=== PATIENT | male | born 1965 | race Two or more races ===

== ENCOUNTER 2017-05-20 11:06 | Inpatient (IN) | payer MEDICAID ==
[2017-05-20] VITALS (8 sets, daily range): BP systolic 94–111; BP diastolic 58–74
[~2017-05-20] VITALS: Ht 170.2 cm; Wt 58.1 kg
[~2017-05-20 11:06] MED LIST: LEVEMIR FL100 UNIT/1 SUBQ
[2017-05-20] MEDS ORDERED: BENAZEPRIL HCL10 MG ORAL (11:25)
[2017-05-20] MEDS ORDERED: METFORMIN HCL500 M1 ORAL (11:25)
[2017-05-20] MEDS ORDERED: Famotidine 20 MG/ 2ML VIAL IVP ONE (11:30)
[2017-05-20 11:59] LABS: MEAN CORPUSCULAR HEMOGLOBIN 28.2 PG (27.0-31.0); MEAN CORPUSCULAR VOLUME 83 FL (80-99); MEAN PLATELET VOLUME 8.9 FL (6.5-10.1); PLATELET COUNT 187 K/UL (150-450); RED BLOOD COUNT 5.52 M/UL (4.70-6.10); RED CELL DISTRIBUTION WIDTH 12.9 % (11.6-14.8); WHITE BLOOD COUNT 9.8 K/UL (4.8-10.8)
[2017-05-20 12:12] LABS: ALANINE AMINOTRANSFERASE 7 U/L (3-41); ALBUMIN/GLOBULIN RATIO 1.9 (1.0-2.7); ANION GAP 41 (5-15); ASPARTATE AMINO TRANSFERASE 14 U/L (5-40); CALCIUM 9.2 mg/dL (8.6-10.2); CHLORIDE 83 mEQ/L (98-107); CREATININE 1.6 mg/dL (0.7-1.2); GLOMERULAR FILTRATION RATE 45.8 mL/min (>60); HEMOLYSIS 1; LIPASE 16 U/L (< 60); MAGNESIUM 2.1 mg/dL (1.7-2.5); POTASSIUM 4.9 mEQ/L (3.4-4.9); SODIUM 131 mEQ/L (135-145); TOTAL PROTEIN 7.6 g/dL (6.6-8.7); TROPONIN I < 0.30 ng/mL (<=0.30)
[2017-05-20 12:23] LABS: CARBON DIOXIDE 7 mEQ/L (20-30)
[2017-05-20] MEDS ORDERED: REGULAR INSULIN IV SCH (13:00)
[2017-05-20] MEDS ORDERED: NS IV SCH (13:00)
[2017-05-20 13:26] LABS: BAND NEUTROPHILS % (MANUAL) 0 % (0-8); BASOPHILS % (MANUAL) 0 % (0-2); EOSINOPHILS % (MANUAL) 0 % (0-3); LYMPHOCYTES % (MANUAL) 11 % (20-45); NEUTROPHILS % (MANUAL) 86 % (45-75); PLATELET ESTIMATE ADEQUATE; PLATELET MORPHOLOGY NORMAL; TOTAL CELLS COUNTED 100
[2017-05-20 13:43] LABS: ABG PCO2 20.1 mmHg (35.0-45.0)
[2017-05-20 13:44] LABS: ABG BASE EXCESS -19.4
--- NOTE | 2017-05-20 14:29 | Emergency Room Report ---
History of Present Illness General Chief Complaint: Abdominal Pain Source: Patient Present Illness HPI 52-year-old male presents to ED for evaluation. Patient states for last 2 days he's been feeling dizzy vomiting. Patient notes epigastric pain, 8/10, burning , nonradiating. Denies chest pain shortness of breath. Patient is a diabetic. Accu-Chek is critically high. States he is compliant with his medications. Denies fevers or chills. No other aggravating relieving factors. Denies any other associated symptoms Allergies: Coded Allergies: NO KNOWN ALLERGIES (Unverified Allergy, Unknown, 10/31/15) Patient History Past Medical History: DM, HTN, seizures Past Surgical History: none Pertinent Family History: none Social History: Denies: alcohol use, drug use, smoking Immunizations: UTD Reviewed Nursing Documentation: PMH: Agreed, PSxH: Agreed Nursing Documentation-PMH Hx Cardiac Problems: No Hx Hypertension: Yes Hx Diabetes: Yes Hx Cancer: No Hx Gastrointestinal Problems: No Hx Neurological Problems: No Hx Seizures: Yes Review of Systems All Other Systems: negative except mentioned in HPI Physical Exam Vital Signs Date Time Temp Pulse Resp B/P Pulse Ox O2 Delivery O2 Flow Rate FiO2 05/20/17 11:11 98.6 100 18 108/74 96 Room Air Sp02 EP Interpretation: reviewed, normal General Appearance: no apparent distress, alert, GCS 15, non-toxic Head: normocephalic, atraumatic Eyes: bilateral eye PERRL, bilateral eye normal inspection ENT: hearing grossly normal, normal pharynx, no angioedema, normal voice Neck: full range of motion, supple/symm/no masses Respiratory: chest non-tender, lungs clear, normal breath sounds, speaking full sentences Cardiovascular #1: regular rate, rhythm, no edema Cardiovascular #2: 2+ carotid (R), 2+ carotid (L), 2+ radial (R), 2+ radial (L) , 2+ dorsalis pedis (R), 2+ dorsalis pedis (L) Gastrointestinal: normal bowel sounds, non tender, soft, non-distended, no guarding, no rebound Rectal: deferred Genitourinary: normal inspection, no CVA tenderness Musculoskeletal: back normal, gait/station normal, normal range of motion, non- tender Neurologic: alert, oriented x3, responsive, motor strength/tone normal, sensory intact, speech normal Psychiatric: judgement/insight normal, memory normal, mood/affect normal, no suicidal/homicidal ideation Reflexes: 3+ bicep (R), 3+ bicep (L), 3+ tricep (R), 3+ tricep (L), 3+ knee (R) , 3+ knee (L) Skin: normal color, no rash, warm/dry, well hydrated Lymphatic: no adenopathy Procedures Critical Care Time Critical Care Time i. I feel this is a highly complex case requiring extensive working including EKG/Rhythm strip, Xray/CT/US, Blood/urine lab work, repeat exams while in ED, and administration of strong opiates/narcotics for pain control, admission to hospital or close patient follow up. Total time: 30 min bedside evaluation and treatment excludes procedures (EKG). Reason for critical care: DKA Possible complications: hypotension, hypertension, PA, shock, arrhythmias, metabolic acidosis, end organ damage, respiratory failure. Interventions: Labs, IV fluids, Accu-Cheks, EKG. ABG. Insulin bolus. Insulin drip Course: Patient here for dizziness, vomiting. Accu-Chek critically high. Glucose greater than 500, positive ketones, low bicarbonate. EKG unremarkable. IV fluids given. Insulin bolus given. Insulin drip started Consultations: nursing staff, EMS, family Performed by: Dr Kelly Tolerated well condition = critical j. because of unstable vital signs this patient had a condition that could potentially threaten life or limb. I feel this is a critical patient who required my full attention while patient was considered critical. Total Critical Care Time excluding procedures was greater than 35 minutes Medical Decision Making Diagnostic Impression: Primary Impression: DKA (diabetic ketoacidoses) Qualified Codes: E10.10 - Type 1 diabetes mellitus with ketoacidosis without coma ER Course Hospital Course 52-year-old male presenting to ED with dizziness, vomiting. accucheck critically high Differential diagnoses include: ETOH/drug ingestion, sepsis, DKA Clinical course Patient placed on stretcher. On panel monitor. After initial history and physical I ordered labs, 2 L of IV fluids, EKG Labs-glucose greater than 500, anion gap elevated, bicarbonate 7, BUN/ creatinine elevated. ABG shows acidosis, low bicarb EKG - NSR, no acute changes interpreted by me Given IV fluids, 2 more liters are ordered and insulin drip started. Case discussed with Dr. Bone and he agreed to accept the patient to his service for further care and support i. I feel this is a highly complex case requiring extensive working including EKG/Rhythm strip, Xray/CT/US, Blood/urine lab work, repeat exams while in ED, and administration of strong opiates/narcotics for pain control, admission to hospital or close patient follow up. j. because of unstable vital signs this patient had a condition that could potentially threaten life or limb. I feel this is a critical patient who required my full attention while patient was considered critical. Total Critical Care Time excluding procedures was greater than 35 minutes diagnosis - DKA admitted to ICU in critical condition Labs Test 05/20/17 11:40 05/20/17 13:32 White Blood Count 9.8 K/UL (4.8-10.8) Red Blood Count 5.52 M/UL (4.70-6.10) Hemoglobin 15.6 G/DL (14.2-18.0) Hematocrit 45.8 % (42.0-52.0) Mean Corpuscular Volume 83 FL (80-99) Mean Corpuscular Hemoglobin 28.2 PG (27.0-31.0) Mean Corpuscular Hemoglobin Concent 34.0 G/DL (32.0-36.0) Red Cell Distribution Width 12.9 % (11.6-14.8) Platelet Count 187 K/UL (150-450) Mean Platelet Volume 8.9 FL (6.5-10.1) Neutrophils (%) (Auto) % (45.0-75.0) Lymphocytes (%) (Auto) % (20.0-45.0) Monocytes (%) (Auto) % (1.0-10.0) Eosinophils (%) (Auto) % (0.0-3.0) Basophils (%) (Auto) % (0.0-2.0) Differential Total Cells Counted 100 Neutrophils % (Manual) 86 % (45-75) Lymphocytes % (Manual) 11 % (20-45) Monocytes % (Manual) 3 % (1-10) Eosinophils % (Manual) 0 % (0-3) Basophils % (Manual) 0 % (0-2) Band Neutrophils 0 % (0-8) Platelet Estimate Adequate Platelet Morphology Normal Red Blood Cell Morphology Normal Sodium Level 131 mEQ/L (135-145) Potassium Level 4.9 mEQ/L (3.4-4.9) Chloride Level 83 mEQ/L (98-107) Carbon Dioxide Level 7 mEQ/L (20-30) Anion Gap 41 (5-15) Blood Urea Nitrogen 21 mg/dL (7-23) Creatinine 1.6 mg/dL (0.7-1.2) Estimat Glomerular Filtration Rate 45.8 mL/min (>60) Glucose Level 542 mg/dL (74-106) Calcium Level 9.2 mg/dL (8.6-10.2) Magnesium Level 2.1 mg/dL (1.7-2.5) Total Bilirubin 0.8 mg/dL (0.0-1.2) Aspartate Amino Transf (AST/SGOT) 14 U/L (5-40) Alanine Aminotransferase (ALT/SGPT) 7 U/L (3-41) Alkaline Phosphatase 94 U/L (40-129) Troponin I < 0.30 ng/mL (<=0.30) Total Protein 7.6 g/dL (6.6-8.7) Albumin 5.0 g/dL (3.5-5.2) Globulin 2.6 g/dL Albumin/Globulin Ratio 1.9 (1.0-2.7) Lipase 16 U/L (< 60) Acetone Level Positive-small (NEGATIVE) Arterial Blood pH 7.170 (7.350-7.450) Arterial Blood Partial Pressure CO2 20.1 mmHg (35.0-45.0) Arterial Blood Partial Pressure O2 102.3 mmHg (75.0-100.0) Arterial Blood HCO3 7.1 mmol/L (22.0-26.0) Arterial Blood Oxygen Saturation 96.0 % (92.0-98.0) Arterial Blood Base Excess -19.4 Saran Test EKG Diagnostic Results Rate: normal Rhythm: NSR ST Segments: no acute changes ASA given to the pt in ED: No Rhythm Strip Diag. Results EP Interpretation: yes Rhythm: NSR, no PVC's, no ectopy Last Vital Signs Date Time Temp Pulse Resp B/P Pulse Ox O2 Delivery O2 Flow Rate FiO2 05/20/17 12:27 92 18 103/63 96 Room Air 05/20/17 11:22 98.6 Status: improved Disposition: ADMITTED INPATIENT Condition: Critical Referrals: NOT CHOSEN IPA/,REFERRING (PCP) PABLO KELLY M.D. May 20, 2017 14:29
[2017-05-20] MEDS ORDERED: Morphine Sulfate 4mg/ml Inj IVP PRN (15:30)
[2017-05-20] MEDS ORDERED: LORazepam Inj 2mg/ml 1ml IV PRN (15:30)
[2017-05-20] MEDS ORDERED: Nitroglycerin Subl 0.4mg tab (Bottle Of 25) SL PRN (15:30)
[2017-05-20] MEDS ORDERED: Miralax 17gm pkt ORAL PRN (15:30)
[2017-05-20] MEDS ORDERED: DuoNeb 0.5-3(2.5)mg/3ml neb HHN PRN (15:30)
[2017-05-20] MEDS: Insulin Rate Change 1 Each MISC PRN ×2 (19:12→21:03)
--- NOTE | 2017-05-20 20:40 | History & Physical ---
History and Physical History & Physicial d/c summary dictated [id number] COCO ROBERTS M.D. May 20, 2017 20:40
[2017-05-20] MEDS: Heparin 5000 units/ml inj SUBQ SCH (21:02)
[2017-05-20] MEDS ORDERED: Insulin Rate Change 1 Each MISC PRN (22:00)
[2017-05-21] VITALS (21 sets, daily range): BP systolic 90–114; BP diastolic 37–71
[2017-05-21] MEDS: Insulin Rate Change 1 Each MISC PRN ×7 (00:59→17:09)
[2017-05-21 04:55] LABS: APPEARANCE,URINE CLEAR; KETONES,URINE 4+ (NEGATIVE); LEUKOCYTE ESTERASE ,URINE NEGATIVE (NEGATIVE); NITRITE,URINE NEGATIVE (NEGATIVE); PH,URINE 5 (4.5-8.0); UROBILINOGEN,URINE NORMAL MG/DL (0.0-1.0)
[2017-05-21 05:08] LABS: PROTEIN,URINE NEGATIVE (NEGATIVE)
[2017-05-21 05:18] LABS: BILIRUBIN,DIRECT 0.2 mg/dL (0.1-0.3); INR 0.9 (0.9-1.1); PHOSPHORUS 2.4 mg/dL (2.5-4.8); PROTHROMBIN TIME 9.8 SEC (9.30-11.50)
[2017-05-21 05:20] LABS: ANION GAP 19 (5-15); CALCIUM 7.9 mg/dL (8.6-10.2); CARBON DIOXIDE 18 mEQ/L (20-30); CHLORIDE 106 mEQ/L (98-107); CREATININE 0.8 mg/dL (0.7-1.2); GLOMERULAR FILTRATION RATE > 60 mL/min (>60); HEMOLYSIS 6; POTASSIUM 3.4 mEQ/L (3.4-4.9); SODIUM 143 mEQ/L (135-145)
[2017-05-21] MEDS ORDERED: Benazepril 10mg tab ORAL SCH (09:00)
[2017-05-21] MEDS: Heparin 5000 units/ml inj SUBQ SCH ×2 (09:00→21:46)
--- NOTE | 2017-05-21 10:06 | Pulmonolgy Critical Care Note ---
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 Critical Care - Objective Last 24 Hour Vital Signs Date Time Temp Pulse Resp B/P Pulse Ox O2 Delivery O2 Flow Rate FiO2 05/21/17 09:00 90/61 05/21/17 08:00 97.8 61 16 99/62 100 Room Air 05/21/17 07:00 63 12 93/61 99 Room Air 05/21/17 06:00 59 13 99/66 98 Room Air 05/21/17 05:00 57 12 99/63 98 Room Air 05/21/17 04:00 59 05/21/17 04:00 97.9 63 13 96/61 100 Room Air 05/21/17 03:00 63 13 95/64 98 Room Air 05/21/17 02:00 60 12 91/59 100 Room Air 05/21/17 01:00 67 12 91/58 99 Room Air 05/21/17 00:00 68 05/21/17 00:00 66 05/21/17 00:00 98.1 67 12 92/57 98 Room Air 05/20/17 23:00 69 14 111/67 100 Room Air 05/20/17 22:00 67 12 101/58 98 Room Air 05/20/17 21:30 73 05/20/17 21:00 71 13 98/63 100 Room Air 05/20/17 20:00 98.3 71 16 95/59 99 Room Air 05/20/17 16:23 78 18 94/58 99 Room Air 05/20/17 16:15 98.6 78 18 94/58 99 Room Air 05/20/17 14:20 81 18 105/66 96 Room Air 05/20/17 12:27 92 18 103/63 96 Room Air 05/20/17 11:22 98.6 18 108/74 96 Room Air 05/20/17 11:11 98.6 100 18 108/74 96 Room Air Status: awake Condition: critical HEENT: atraumatic Heart: HR/BP stable, HR/BP unstable Abdomen: soft, non-tender Extremities: no C/C/E Accucheck: 184 Critical Care - Subjective ROS Limited/Unobtainable: Yes ICU Day: 2 Intubation Day: 2 Condition: critical EKG Rhythm: Sinus Rhythm Fluids: NS 150 cc.hour I&O: Intake and Output 05/20/17 05/21/17 19:00 07:00 Intake Total 3325 ml 1720.3 ml Output Total 1200 ml 750 ml Balance 2125 ml 970.3 ml Intake Oral 0 ml 60 ml IV Total 3305 ml 1660.3 ml Other 20 ml Output Urine Total 1200 ml 750 ml CXR: JAS Labs: Laboratory Tests Test 05/20/17 11:40 05/20/17 13:32 05/21/17 04:00 05/21/17 04:05 White Blood Count 9.8 K/UL (4.8-10.8) Red Blood Count 5.52 M/UL (4.70-6.10) Hemoglobin 15.6 G/DL (14.2-18.0) Hematocrit 45.8 % (42.0-52.0) Mean Corpuscular Volume 83 FL (80-99) Mean Corpuscular Hemoglobin 28.2 PG (27.0-31.0) Mean Corpuscular Hemoglobin Concent 34.0 G/DL (32.0-36.0) Red Cell Distribution Width 12.9 % (11.6-14.8) Platelet Count 187 K/UL (150-450) Mean Platelet Volume 8.9 FL (6.5-10.1) Neutrophils (%) (Auto) % (45.0-75.0) Lymphocytes (%) (Auto) % (20.0-45.0) Monocytes (%) (Auto) % (1.0-10.0) Eosinophils (%) (Auto) % (0.0-3.0) Basophils (%) (Auto) % (0.0-2.0) Differential Total Cells Counted 100 Neutrophils % (Manual) 86 % (45-75) H Lymphocytes % (Manual) 11 % (20-45) L Monocytes % (Manual) 3 % (1-10) Eosinophils % (Manual) 0 % (0-3) Basophils % (Manual) 0 % (0-2) Band Neutrophils 0 % (0-8) Platelet Estimate Adequate Platelet Morphology Normal Red Blood Cell Morphology Normal Sodium Level 131 mEQ/L (135-145) L 143 mEQ/L (135-145) # Potassium Level 4.9 mEQ/L (3.4-4.9) 3.4 mEQ/L (3.4-4.9) Chloride Level 83 mEQ/L (98-107) L 106 mEQ/L (98-107) Carbon Dioxide Level 7 mEQ/L (20-30) *L 18 mEQ/L (20-30) L Anion Gap 41 (5-15) H 19 (5-15) H Blood Urea Nitrogen 21 mg/dL (7-23) 12 mg/dL (7-23) Creatinine 1.6 mg/dL (0.7-1.2) H 0.8 mg/dL (0.7-1.2) Estimat Glomerular Filtration Rate 45.8 mL/min (>60) > 60 mL/min (>60) Glucose Level 542 mg/dL (74-106) *H 89 mg/dL (74-106) # Calcium Level 9.2 mg/dL (8.6-10.2) 7.9 mg/dL (8.6-10.2) L Magnesium Level 2.1 mg/dL (1.7-2.5) Total Bilirubin 0.8 mg/dL (0.0-1.2) 0.9 mg/dL (0.0-1.2) Aspartate Amino Transf (AST/SGOT) 14 U/L (5-40) 11 U/L (5-40) Alanine Aminotransferase (ALT/SGPT) 7 U/L (3-41) 5 U/L (3-41) Alkaline Phosphatase 94 U/L (40-129) 58 U/L (40-129) Troponin I < 0.30 ng/mL (<=0.30) Total Protein 7.6 g/dL (6.6-8.7) 5.0 g/dL (6.6-8.7) #L Albumin 5.0 g/dL (3.5-5.2) 3.4 g/dL (3.5-5.2) L Globulin 2.6 g/dL Albumin/Globulin Ratio 1.9 (1.0-2.7) Lipase 16 U/L (< 60) Acetone Level Positive-small (NEGATIVE) Arterial Blood pH 7.170 (7.350-7.450) Arterial Blood Partial Pressure CO2 20.1 mmHg (35.0-45.0) *L Arterial Blood Partial Pressure O2 102.3 mmHg (75.0-100.0) H Arterial Blood HCO3 7.1 mmol/L (22.0-26.0) L Arterial Blood Oxygen Saturation 96.0 % (92.0-98.0) Arterial Blood Base Excess -19.4 Saran Test Urine Color Yellow Urine Appearance Clear Urine pH 5 (4.5-8.0) Urine Specific Seltzer 1.025 (1.005-1.035) Urine Protein Negative (NEGATIVE) Urine Glucose (UA) 4+ (NEGATIVE) H Urine Ketones 4+ (NEGATIVE) H Urine Occult Blood Negative (NEGATIVE) Urine Nitrite Negative (NEGATIVE) Urine Bilirubin Negative (NEGATIVE) Urine Urobilinogen Normal MG/DL (0.0-1.0) Urine Leukocyte Esterase Negative (NEGATIVE) Prothrombin Time 9.8 SEC (9.30-11.50) Prothromb Time International Ratio 0.9 (0.9-1.1) Activated Partial Thromboplast Time 23 SEC (23-33) Phosphorus Level 2.4 mg/dL (2.5-4.8) L Direct Bilirubin 0.2 mg/dL (0.1-0.3) LIBRA DUONG May 21, 2017 10:06
[2017-05-21] MEDS ORDERED: Potassium Chloride 10 MEQ in D5 1/2NS 1,000 ML IV SCH (11:00)
[2017-05-21] MEDS ORDERED: Potassium Phosphate 30 MM in Sodium Chloride 550 ML IV ONE (11:30)
--- NOTE | 2017-05-21 12:02 | Cardiology Report ---
APPROVED REPORT EKG Measurement Heart [id number] Normal sinus rhythm Biatrial enlargement Abnormal ECG
--- NOTE | 2017-05-21 12:16 | Internal Med Progress Note ---
Subjective Physician Name Coco Roberts Attending Physician Coco Roberts M.D. Current Medications Medications (Trade) Dose Ordered Sig/Fariha Route PRN Reason Start Time Stop Time Status Last Admin Dose Admin Acetaminophen (Tylenol) 650 mg Q4H PRN ORAL T>100.5 05/20/17 15:30 06/19/17 15:29 Albuterol/ Ipratropium 3 ml 3 ml Q4H PRN HHN Shortness of Breath 05/20/17 15:30 05/25/17 15:29 Benazepril HCl (Lotensin) 5 mg DAILY ORAL 05/21/17 09:00 06/20/17 08:59 Dextrose (Dextrose 50%) PRN PRN IV HYPOGLYCEMIA 05/20/17 23:45 06/19/17 23:44 Heparin Sodium (Porcine) (Heparin 5000 units/ml) 5,000 units EVERY 12 HOURS SUBQ 05/20/17 21:00 06/19/17 20:59 05/20/17 21:02 Insulin Human Regular (NovoLIN R) 5 units PRN PRN IV BS 200-299 05/20/17 23:45 06/19/17 23:44 05/21/17 00:59 Insulin Human Regular (NovoLIN R) 10 units PRN PRN IV BS=>300 05/20/17 23:45 06/19/17 23:44 Insulin Human Regular/Sodium Chloride (NovoLIN R/ Sodium Chloride) 101 ml @ 0 mls/hr Q24H IV 05/20/17 23:45 06/19/17 23:44 05/21/17 10:07 Lorazepam (Ativan 2mg/ml 1ml) 2 mg Q2H PRN IV agitation 05/20/17 15:30 05/27/17 15:29 Miscellaneous Medication 1 ea 1 ea PRN PRN MISC Hyperglycemia 05/20/17 23:45 06/19/17 23:44 05/21/17 11:29 Morphine Sulfate (Morphine Sulfate) 4 mg Q4H PRN IVP Severe Pain (Pain Scale 7-10) 05/20/17 15:30 05/27/17 15:29 Nitroglycerin (Ntg) 0.4 mg Q5M PRN SL Prn Chest Pain 05/20/17 15:30 06/19/17 15:29 Ondansetron HCl (Zofran) 4 mg Q6H PRN IVP Nausea & Vomiting 05/20/17 15:30 06/19/17 15:29 Polyethylene Glycol (Miralax) 17 gm DAILYPRN PRN ORAL Constipation 05/20/17 15:30 06/19/17 15:29 Potassium Chloride 10 meq/ Dextrose/Sodium Chloride 1,005 ml @ 75 mls/hr [id number] IV 05/21/17 11:00 06/20/17 10:59 05/21/17 11:27 Potassium Phosphate/Sodium Chloride (Potassium Phosphate/NS) 560 ml @ 93.3 mls/hr ONCE ONCE IV 05/21/17 11:30 05/21/17 17:30 Allergies: Coded Allergies: NO KNOWN ALLERGIES (Unverified Allergy, Unknown, 10/31/15) All Systems: reviewed and negative except above - weakness, thirsty Objective Last Vital Signs Date Time Temp Pulse Resp B/P Pulse Ox O2 Delivery O2 Flow Rate FiO2 05/21/17 11:00 69 16 102/65 100 Room Air 05/21/17 08:00 97.8 General Appearance: alert, mild distress Neck: normal alignment, supple Cardiovascular: normal rate, regular rhythm Respiratory/Chest: lungs clear, normal breath sounds Abdomen: non tender, soft Extremities: normal range of motion, non-tender Edema: trace edema, mild edema Neurologic: alert, responsive Skin: normal pigmentation, warm/dry Laboratory Tests Test 05/20/17 13:32 05/21/17 04:00 05/21/17 04:05 Arterial Blood pH 7.170 (7.350-7.450) Arterial Blood Partial Pressure CO2 20.1 mmHg (35.0-45.0) *L Arterial Blood Partial Pressure O2 102.3 mmHg (75.0-100.0) H Arterial Blood HCO3 7.1 mmol/L (22.0-26.0) L Arterial Blood Oxygen Saturation 96.0 % (92.0-98.0) Arterial Blood Base Excess -19.4 Saran Test Urine Color Yellow Urine Appearance Clear Urine pH 5 (4.5-8.0) Urine Specific Stanley 1.025 (1.005-1.035) Urine Protein Negative (NEGATIVE) Urine Glucose (UA) 4+ (NEGATIVE) H Urine Ketones 4+ (NEGATIVE) H Urine Occult Blood Negative (NEGATIVE) Urine Nitrite Negative (NEGATIVE) Urine Bilirubin Negative (NEGATIVE) Urine Urobilinogen Normal MG/DL (0.0-1.0) Urine Leukocyte Esterase Negative (NEGATIVE) Prothrombin Time 9.8 SEC (9.30-11.50) Prothromb Time International Ratio 0.9 (0.9-1.1) Activated Partial Thromboplast Time 23 SEC (23-33) Sodium Level 143 mEQ/L (135-145) # Potassium Level 3.4 mEQ/L (3.4-4.9) Chloride Level 106 mEQ/L (98-107) Carbon Dioxide Level 18 mEQ/L (20-30) L Anion Gap 19 (5-15) H Blood Urea Nitrogen 12 mg/dL (7-23) Creatinine 0.8 mg/dL (0.7-1.2) Estimat Glomerular Filtration Rate > 60 mL/min (>60) Glucose Level 89 mg/dL (74-106) # Calcium Level 7.9 mg/dL (8.6-10.2) L Phosphorus Level 2.4 mg/dL (2.5-4.8) L Total Bilirubin 0.9 mg/dL (0.0-1.2) Direct Bilirubin 0.2 mg/dL (0.1-0.3) Aspartate Amino Transf (AST/SGOT) 11 U/L (5-40) Alanine Aminotransferase (ALT/SGPT) 5 U/L (3-41) Alkaline Phosphatase 58 U/L (40-129) Total Protein 5.0 g/dL (6.6-8.7) #L Albumin 3.4 g/dL (3.5-5.2) L Intake and Output 05/20/17 05/21/17 19:00 07:00 Intake Total 3325 ml 1720.3 ml Output Total 1200 ml 750 ml Balance 2125 ml 970.3 ml Intake Oral 0 ml 60 ml IV Total 3305 ml 1660.3 ml Other 20 ml Output Urine Total 1200 ml 750 ml Assessment/Plan Assessment/Plan DKA DM2 TOBIN 2/2 prerenal plan Insulin g++ until AG closed and BS < 250 (protocol) NS @ 150cc/hr BMP hold metformin COCO ROBERTS M.D. May 21, 2017 12:16
[2017-05-21] MEDS ORDERED: Tubing IV Secondary IV ONE ×2 (15:38→16:50)
[2017-05-21 16:22] LABS: ANION GAP 9 (5-15); CARBON DIOXIDE 23 mEQ/L (20-30); CHLORIDE 103 mEQ/L (98-107); CREATININE 0.9 mg/dL (0.7-1.2); GLOMERULAR FILTRATION RATE > 60 mL/min (>60); HEMOLYSIS 6; POTASSIUM 3.8 mEQ/L (3.4-4.9); SODIUM 135 mEQ/L (135-145)
[2017-05-21] MEDS ORDERED: Levemir Flexpen SUBQ SCH (18:30)
--- NOTE | 2017-05-21 18:45 | History and Physical Report ---
DATE OF ADMISSION: 05/20/2017 HISTORY OF PRESENT ILLNESS: This is a 52-year-old male with a history of diabetes, who presents to the emergency room for one day of vomiting followed by an epigastric chest pain. He is taking metformin 500 mg p.o. b.i.d., however, did not take it for one day secondary to vomiting. He believes he may have had a fever yesterday. He reports dysuria. PAST MEDICAL HISTORY: Includes diabetes and hypertension. PAST SURGICAL HISTORY: Negative. MEDICATIONS: Include benazepril and metformin. ALLERGIES: None. SOCIAL HISTORY: The patient does not smoke, drink alcohol, or use any drugs. FAMILY HISTORY: Noncontributory. REVIEW OF SYSTEMS: A 12-point review of systems is negative except for pertinent positives as mentioned above. PHYSICAL EXAMINATION: VITAL SIGNS: Temperature is 98.3, pulse 71, respiratory rate 16, blood pressure 95/59, and O2 saturation is 99% on room air. GENERAL: No acute distress. The patient is alert, awake, and oriented x3. HEENT: Normocephalic/atraumatic. NECK: Supple. No JVD. LUNGS: Clear to auscultation bilaterally. No crackles, rhonchi, or rales. CARDIOVASCULAR: Regular rate and rhythm. Normal S1 and S2. ABDOMEN: Soft, nontender, and nondistended. EXTREMITIES: No clubbing, cyanosis, or edema. SKIN: There is no rashes noted. Normal inspection. LABORATORY DATA: ABG, pH is 7.17, CO2 of 20.1, O2 of 102.3, bicarb is 7. CBC, white count is 9.8, hemoglobin 15.6, and platelet count 97,000. BMP, sodium 131, potassium 4.9, chloride 83, CO2 is 7, anion gap is 41, BUN is 21, creatinine 1.6, and glucose is 542. UA is negative for leukocytes. Toxicology positive for acetone. ASSESSMENT: 1. Diabetic ketoacidosis. 2. Acute kidney injury secondary to dehydration. 3. Epigastric pain/chest pain secondary to vomiting. PLAN: 1. Admit the patient in the ICU. 2. The patient to be on insulin protocol for DKA with insulin drip until the patient's gap is closed. 3. NS at 150 mL/hour. 4. NPO at this time. 5. Pulmonary consult with Dr. Carey. Ayan Bone MD DR: EDUARDO JOB#: [id number] CC:
[2017-05-21] MEDS ORDERED: NovoLOG Insulin Flexpen SUBQ SCH (21:00)
[2017-05-21] MEDS ORDERED: Nitroglycerin Subl 0.4mg tab (Bottle Of 25) SL PRN (21:00)
[2017-05-21] MEDS ORDERED: Miralax 17gm pkt ORAL PRN (21:00)
[2017-05-21] MEDS ORDERED: LORazepam Inj 2mg/ml 1ml IV PRN (21:00)
[2017-05-21] MEDS ORDERED: Morphine Sulfate 4mg/ml Inj IVP PRN (21:00)
[2017-05-21] MEDS ORDERED: DuoNeb 0.5-3(2.5)mg/3ml neb HHN PRN (21:00)
[2017-05-21] MEDS: Levemir Flexpen SUBQ SCH (21:40)
[2017-05-21] MEDS: NovoLOG Insulin Flexpen SUBQ SCH (21:45)
[2017-05-22] VITALS: BP 100/60
[2017-05-22 04:00] VITALS: BP 116/70
[2017-05-22] MEDS: NovoLOG Insulin Flexpen SUBQ SCH ×3 (06:30→17:20)
[2017-05-22] MEDS ORDERED: NovoLOG Insulin Flexpen SUBQ SCH (06:30)
[2017-05-22 08:00] VITALS: BP 107/68
[2017-05-22 08:06] LABS: ALANINE AMINOTRANSFERASE 5 U/L (3-41); ASPARTATE AMINO TRANSFERASE 17 U/L (5-40); CARBON DIOXIDE 28 mEQ/L (20-30); CHLORIDE 101 mEQ/L (98-107); CREATININE 0.7 mg/dL (0.7-1.2); GLOMERULAR FILTRATION RATE > 60 mL/min (>60); HEMOLYSIS 6; MAGNESIUM 1.8 mg/dL (1.7-2.5); SODIUM 141 mEQ/L (135-145); TOTAL PROTEIN 5.1 g/dL (6.6-8.7)
[2017-05-22 08:13] LABS: ANION GAP 12 (5-15)
[2017-05-22 08:18] LABS: POTASSIUM 2.4 mEQ/L (3.4-4.9)
[2017-05-22] MEDS ORDERED: Benazepril 10mg tab ORAL SCH (09:00)
[2017-05-22] MEDS: Heparin 5000 units/ml inj SUBQ SCH (09:00)
[2017-05-22 09:20] LABS: BASOPHILS % (AUTO) 1.2 % (0.0-2.0); EOSINOPHILS % (AUTO) 0.3 % (0.0-3.0); LYMPHOCYTES % (AUTO) 27.2 % (20.0-45.0); MEAN CORPUSCULAR HEMOGLOBIN 27.8 PG (27.0-31.0); MEAN CORPUSCULAR HGB CONC 33.9 G/DL (32.0-36.0); MEAN CORPUSCULAR VOLUME 82 FL (80-99); MEAN PLATELET VOLUME 9.2 FL (6.5-10.1); MONOCYTES % (AUTO) 7.4 % (1.0-10.0); NEUTROPHILS % (AUTO) 63.9 % (45.0-75.0); PLATELET COUNT 103 K/UL (150-450); RED BLOOD COUNT 4.62 M/UL (4.70-6.10); RED CELL DISTRIBUTION WIDTH 12.7 % (11.6-14.8); WHITE BLOOD COUNT 4.3 K/UL (4.8-10.8)
[2017-05-22] MEDS: Levemir Flexpen SUBQ SCH (09:42)
[2017-05-22] MEDS ORDERED: Pneumococcal Vaccine 25mcg/0.5ml IM ONE (10:00)
[2017-05-22 12:02] VITALS: BP 117/74
--- NOTE | 2017-05-22 13:19 | Discharge Instructions ---
Discharge Instructions Discharge Instructions Follow up with: pcp this week Call MD/Return to Hospital if: worsening symptoms Diet: diabetic calorie control Resume Normal Activity?: Yes Special Instructions need BMP in 1 week For Congestive Heart Failure Reminder Report to your physician any weight gain of 5 pounds or more in one week. COCO ROBERTS M.D. May 22, 2017 13:19
--- NOTE | 2017-05-22 13:20 | Discharge Summary ---
Discharge Summary Hospital Course Date of Admission May 20, 2017 at 16:18 Date of Discharge Admitting Diagnosis Diabetic Ketoacidosis HPI Antonio Patel is a 52 year old male who was admitted on May 20, 2017 at 16: 18 for Diabetic Ketoacidosis patient was admitted to ICU and started on Insulin g++ with DKA protocol. His BS was controlled the following day and GAP closed. will need f/u with PCP Hospital Course Antonio Patel is a 52 year old male who was admitted on May 20, 2017 at 16: 18 for Diabetic Ketoacidosis patient was admitted to ICU and started on Insulin g++ with DKA protocol. His BS was controlled the following day and GAP closed. will need f/u with PCP Discharge Medications Continued Medications: Benazepril Hcl* (Benazepril Hcl*) 10 Mg Tablet 5 MG ORAL DAILY, TAB Insulin Detemir (Levemir Flexpen) 100 Unit/1 Ml Insuln.pen 15 SUBQ BEDTIME, #300 UNITS 1 Refill Metformin Hcl (Glucophage) 1,000 Mg Tablet 1000 MG ORAL BID, #60 TAB Discontinued Medications: Insulin Detemir (Levemir Flexpen) 100 Unit/1 Ml Insuln.pen 12 UNIT SUBQ DAILY for 30 Days, UNITS 12 Refills Given to patient. Metformin Hcl* (Metformin Hcl*) 500 Mg Tablet 500 MG ORAL DAILY, TAB Discharge Condition Upon Discharge: stable Discharge Disposition Patient was discharged to HOME Discharge Diagnoses: Discharge Instructions Discharge Instructions Follow up with: pcp this week Call MD/Return to Hospital if: worsening symptoms COCO ROBERTS M.D. May 22, 2017 13:20
[2017-05-22 14:30] VITALS: BP 123/79
[2017-05-22 16:18] VITALS: BP 110/64
--- NOTE | 2017-05-22 17:33 | Pulmonology Progress Note ---
Assessment/Plan Problems: (1) DKA (diabetic ketoacidoses) Assessment/Plan resolved sliding scale BS controlled dc planning Subjective ROS Limited/Unobtainable: No Allergies: Coded Allergies: NO KNOWN ALLERGIES (Unverified Allergy, Unknown, 10/31/15) Objective Last 24 Hour Vital Signs Date Time Temp Pulse Resp B/P Pulse Ox O2 Delivery O2 Flow Rate FiO2 05/22/17 16:18 98.1 74 16 110/64 100 Room Air 05/22/17 12:02 98.2 70 16 117/74 100 Room Air 05/22/17 09:21 116/70 05/22/17 09:03 80 16 Room Air 05/22/17 08:00 98.1 80 20 107/68 99 Room Air 05/22/17 04:00 97.9 73 20 116/70 100 Room Air 73 05/22/17 02:58 98.1 05/22/17 00:00 98.1 72 19 100/60 97 Room Air 05/21/17 20:00 97.9 75 17 105/64 98 Room Air 05/21/17 20:00 76 05/21/17 19:00 81 19 107/67 98 Room Air 05/21/17 18:00 90 16 114/71 100 Room Air Intake and Output 05/21/17 05/22/17 19:00 07:00 Intake Total 3437.74 ml 0 ml Output Total 1400 ml 850 ml Balance 2037.74 ml -850 ml Intake Oral 2220 ml 0 ml IV Total 1217.74 ml Output Urine Total 1400 ml 850 ml General Appearance: WD/WN HEENT: normocephalic, atraumatic Respiratory/Chest: chest wall non-tender, lungs clear Cardiovascular: normal peripheral pulses, normal rate Abdomen: normal bowel sounds, soft, non tender Genitourinary: normal external genitalia Skin: no rash Microbiology Date/Time Source Procedure Growth Status 05/20/17 16:06 Nasal Nares MRSA Culture - Final NO METHICILLIN RESISTANT STAPH AUREUS... Complete Laboratory Tests 05/22/17 07:00: Sodium Level 141, Potassium Level 2.4*L, Chloride Level 101, Carbon Dioxide Level 28, Anion Gap 12, Blood Urea Nitrogen 8, Creatinine 0.7, Estimat Glomerular Filtration Rate > 60, Glucose Level 175H, Calcium Level 8.0L, Phosphorus Level 3.0, Magnesium Level 1.7, Total Bilirubin 0.7, Aspartate Amino Transf (AST/SGOT) 17, Alanine Aminotransferase (ALT/SGPT) 5, Alkaline Phosphatase 59, Total Protein 5.1L, Albumin 3.4L, Globulin 1.7, Albumin/ Globulin Ratio 2.0 05/22/17 09:00: White Blood Count 4.3L, Red Blood Count 4.62L, Hemoglobin 12.8L, Hematocrit 37.8L, Mean Corpuscular Volume 82, Mean Corpuscular Hemoglobin 27.8, Mean Corpuscular Hemoglobin Concent 33.9, Red Cell Distribution Width 12.7, Platelet Count 103L, Mean Platelet Volume 9.2, Neutrophils (%) (Auto) 63.9, Lymphocytes ( %) (Auto) 27.2, Monocytes (%) (Auto) 7.4, Eosinophils (%) (Auto) 0.3, Basophils (%) (Auto) 1.2 Current Medications Medications (Trade) Dose Ordered Sig/Fariha Route PRN Reason Start Time Stop Time Status Last Admin Dose Admin Acetaminophen (Tylenol) 650 mg Q4H PRN ORAL T>100.5 05/21/17 21:00 06/20/17 20:59 05/22/17 01:51 Albuterol/ Ipratropium (DuoNeb 0.5-3(2.5)mg/3ml) 3 ml Q4H PRN HHN Shortness of Breath 05/21/17 21:00 05/26/17 20:59 Benazepril HCl (Lotensin) 5 mg DAILY ORAL 05/22/17 09:00 06/21/17 08:59 05/22/17 09:21 Dextrose (Dextrose 50%) STAT PRN IV Hypoglycemia 05/21/17 21:00 06/20/17 20:59 05/22/17 06:40 Heparin Sodium (Porcine) (Heparin 5000 units/ml) 5,000 units EVERY 12 HOURS SUBQ 05/21/17 21:00 06/20/17 20:59 05/21/17 21:46 Insulin Aspart (NovoLOG) BEFORE MEALS AND HS SUBQ 05/21/17 22:00 06/20/17 21:59 05/22/17 17:20 Insulin Detemir (Levemir) 30 units Q12HR SUBQ 05/21/17 22:00 06/20/17 21:59 05/22/17 09:42 Lorazepam (Ativan 2mg/ml 1ml) 2 mg Q2H PRN IV agitation 05/21/17 21:00 05/28/17 20:59 Morphine Sulfate (Morphine Sulfate) 4 mg Q4H PRN IVP Severe Pain (Pain Scale 7-10) 05/21/17 21:00 05/28/17 20:59 05/22/17 11:52 Nitroglycerin (Ntg) 0.4 mg Q5M PRN SL Prn Chest Pain 05/21/17 21:00 06/20/17 20:59 Ondansetron HCl (Zofran) 4 mg Q6H PRN IVP Nausea & Vomiting 05/21/17 21:30 06/20/17 21:29 Polyethylene Glycol (Miralax) 17 gm DAILYPRN PRN ORAL Constipation 05/21/17 21:00 06/20/17 20:59 LIBRA DUONG May 22, 2017 17:33
[2017-05-22] MEDS ORDERED: GLUCOPHAGE1000 MG ORAL (18:38)
[2017-05-22] MEDS ORDERED: LEVEMIR FL100 UNIT/1 SUBQ (18:42)
[2017-05-22] MEDS ORDERED: NS 275ml ONE (20:14)
[2017-05-22] MEDS ORDERED: Tubing IV Secondary IV ONE (20:14)
== END 2017-05-22 20:15 | disposition home or self-care (01) | DRG 420 ==
LOC: EMR 11:46 → EDBEDREQ 15:58 → ICU 16:18 → 4E 05-21 20:38
DX: E13.10 Other specified diabetes mellitus with ketoacidosis without coma (principal); N17.9 Acute kidney failure, unspecified; E86.0 Dehydration; R10.13 Epigastric pain; R07.89 Other chest pain
CPT/HCPCS: 36415; 36600; 80048; 80053; 80076; 81003; 82009; 82803; 82962; 83690; 83735; 84100; 84484; 85007; 85025; 85610; 85730; 87081; 90732; 93005; 94664; J1815; J2405; J8499; S5561

== ENCOUNTER 2017-05-22 23:48 | Emergency (ER) | payer MEDICAID ==
[~2017-05-22] VITALS: Ht 170.2 cm; Wt 72.6 kg
[~2017-05-22 23:48] MED LIST changes: +BENAZEPRIL HCL10 MG ORAL; +GLUCOPHAGE1000 MG ORAL; +METFORMIN HCL500 M1 ORAL
[2017-05-23] VITALS: BP 122/79
--- NOTE | 2017-05-23 00:34 | Emergency Room Report ---
History of Present Illness General Chief Complaint: Abdominal Pain Source: Patient Present Illness HPI 52YOM walk-in with 2 days of nausea/vomiting, dizziness since DC from [facility] [place] for DKA. Has had DM for 2 years. Denies chest pain, SOB, abd pain, fever/chills, urinary complaints. Patient was given Rx for Metformin, Insulin. States he didnt know he had to go to pharmacy to fill Rx Glucose 120 on accucheck in ED Allergies: Coded Allergies: NO KNOWN ALLERGIES (Unverified Allergy, Unknown, 10/31/15) Patient History Past Medical History: DM, HTN Past Surgical History: none Pertinent Family History: none Social History: Denies: alcohol use, drug use, smoking Immunizations: UTD Reviewed Nursing Documentation: PMH: Agreed, PSxH: Agreed Nursing Documentation-PMH Past Medical History: No History, Except For Hx Cardiac Problems: No Hx Hypertension: Yes Hx Diabetes: Yes Hx Cancer: No Hx Gastrointestinal Problems: No Hx Neurological Problems: No Hx Seizures: No Review of Systems All Other Systems: negative except mentioned in HPI Physical Exam Vital Signs Date Time Temp Pulse Resp B/P Pulse Ox O2 Delivery O2 Flow Rate FiO2 05/22/17 23:58 97.3 74 17 122/79 100 Room Air Medical Decision Making Diagnostic Impression: Primary Impression: Nausea & vomiting Qualified Codes: R11.2 - Nausea with vomiting, unspecified Additional Impression: Dizziness ER Course Nausea/vomiting, dizziness - VSS. Afebrile. - Non focal abdomen - Accucheck normal - Not vomiting in ED - Labs: No DKA. Glucose normal. No AG gap. Bicarb normal. Significant delay from lab in processing UA and CBC. I placed multiple calls to lab at 2am and 145am with no one answering the phone. Patient did not want to wait for CBC, UA to be processed. I have low suspicion for infection or acute anemia. No additional vomiting in ED. Provided instruction on importance of filling Rx at pharmacy. Patient verbalized understanding. EKG Diagnostic Results Rate: normal Rhythm: NSR ST Segments: no acute changes ASA given to the pt in ED: No Rhythm Strip Diag. Results EP Interpretation: yes Rate: 90 Rhythm: NSR, no PVC's, no ectopy Last Vital Signs Date Time Temp Pulse Resp B/P Pulse Ox O2 Delivery O2 Flow Rate FiO2 05/23/17 00:00 97.3 73 17 122/79 100 Room Air Status: improved Disposition: HOME, SELF-CARE HERMAN MCKEON M.D. May 23, 2017 00:34
[2017-05-23 01:23] LABS: MEAN CORPUSCULAR HEMOGLOBIN 27.7 PG (27.0-31.0); MEAN CORPUSCULAR HGB CONC 34.4 G/DL (32.0-36.0); MEAN CORPUSCULAR VOLUME 80 FL (80-99); MEAN PLATELET VOLUME 9.1 FL (6.5-10.1); PLATELET COUNT 97 K/UL (150-450); RED BLOOD COUNT 4.39 M/UL (4.70-6.10); RED CELL DISTRIBUTION WIDTH 12.3 % (11.6-14.8); WHITE BLOOD COUNT 5.3 K/UL (4.8-10.8)
[2017-05-23 01:30] LABS: ALANINE AMINOTRANSFERASE 11 U/L (3-41); ALBUMIN/GLOBULIN RATIO 1.5 (1.0-2.7); ANION GAP 12 (5-15); ASPARTATE AMINO TRANSFERASE 49 U/L (5-40); CALCIUM 8.9 mg/dL (8.6-10.2); CARBON DIOXIDE 30 mEQ/L (20-30); CHLORIDE 95 mEQ/L (98-107); CREATININE 0.6 mg/dL (0.7-1.2); GLOMERULAR FILTRATION RATE > 60 mL/min (>60); HEMOLYSIS 2; LIPASE 9 U/L (< 60); POTASSIUM 3.4 mEQ/L (3.4-4.9); SODIUM 137 mEQ/L (135-145); TOTAL PROTEIN 5.8 g/dL (6.6-8.7)
[2017-05-23 01:45] LABS: TROPONIN I < 0.30 ng/mL (<=0.30)
[2017-05-23 01:55] LABS: APPEARANCE,URINE CLEAR; KETONES,URINE 3+ (NEGATIVE); LEUKOCYTE ESTERASE ,URINE 1+ (NEGATIVE); NITRITE,URINE NEGATIVE (NEGATIVE); PH,URINE 6 (4.5-8.0); PROTEIN,URINE 2+ (NEGATIVE); UROBILINOGEN,URINE 4 MG/DL (0.0-1.0)
[2017-05-23 02:00] VITALS: BP 110/70
[2017-05-23 02:27] LABS: BACTERIA,URINE FEW /HPF; MUCUS,URINE MODERATE /LPF (NONE/OCC); RBC,URINE 0-2 /HPF (0 - 0); SQUAMOUS EPITHELIAL CELL,UR FEW /LPF (NONE/OCC)
[2017-05-23 02:40] VITALS: BP 119/79
[2017-05-23 07:50] LABS: BAND NEUTROPHILS % (MANUAL) 1 % (0-8); LYMPHOCYTES % (MANUAL) 13 % (20-45); NEUTROPHILS % (MANUAL) 80 % (45-75); TOTAL CELLS COUNTED 100
[2017-05-23 07:51] LABS: BASOPHILS % (MANUAL) 0 % (0-2); EOSINOPHILS % (MANUAL) 0 % (0-3); PLATELET ESTIMATE DECREASED; PLATELET MORPHOLOGY NORMAL
--- NOTE | 2017-05-24 09:32 | Cardiology Report ---
APPROVED REPORT EKG Measurement Heart [id number] MA [id number] Normal sinus rhythm Normal ECG
== END 2017-05-23 02:40 | disposition home or self-care (01) ==
LOC: EMR 23:59
DX: R11.2 Nausea with vomiting, unspecified (principal); R42 Dizziness and giddiness; E11.9 Type 2 diabetes mellitus without complications; I10 Essential (primary) hypertension
CPT/HCPCS: 36415; 80053; 81003; 82962; 83690; 84484; 85007; 85025; 93005; 96374; 99284; J2405